=== PATIENT | male | born 1970 | race Caucasian/White ===

== ENCOUNTER 2016-11-27 13:55 | Inpatient (IN) | payer BC, OTHER ==
[~2016-11-27] VITALS: Ht 180.3 cm; Wt 106.6 kg
[~2016-11-27 13:55] MED LIST: ADULT LOW DOSE81 MG PO; CELEXA 20 MG TA20 M1 PO; CLARITIN10 MG PO; HYDROCODON-ACE1 EAC7 PO; MULTIPLE VITAM1 EAC3 PO; MULTIVITAMINS PO; NORCO 5-325 TA1 EACH PO; OMEPRAZOLE PO; PROTONIX40 M2 PO; SIMVASTATIN20 MG PO; TAMSULOSIN HCL0.4 MG PO; WELLBUTRIN SR150 MG PO; ZOFRAN ODT4 MG PO
[2016-11-27 14:21] VITALS: BP 146/100
[2016-11-27] MEDS ORDERED: PROZAC 10 MG CA10 MG PO (14:28)
[2016-11-27] MEDS ORDERED: PREVALITE PACKE1 PKT PO (14:29)
[2016-11-27 14:40] LABS: URINE BILIRUBIN 1+ (Negative); URINE BLOOD 3+ (Negative); URINE COLOR RED; URINE GLUCOSE-RANDOM* NEGATIVE (Negative); URINE KETONES NEGATIVE (Negative); URINE LEUKOCYTES-REFLEX NEGATIVE (Negative); URINE PROTEIN (DIPSTICK) 2+ (Negative); URINE SPECIFIC GRAVITY >= 1.030 (1.003-1.035); URINE UROBILINOGEN 0.2 E.U./dl (0.2-1.0)
[2016-11-27 14:46] LABS: HEMATOCRIT 43.9 % (42.0-52.0); HEMOGLOBIN 15.5 gm/dL (14.0-18.0); MCH 31.4 pg (26.0-34.0); MCHC 35.4 g/dL (28.0-37.0); MCV 88.7 fL (80.0-100.0); RBC 4.95 mil/uL (4.50-6.00); RDW 12.5 % (10.5-14.5); WBC 11.6 thou/uL (4.0-11.0)
[2016-11-27 14:49] LABS: CASTS None Seen /LPF (None Seen); ICTOTEST (BILI CONFIRMATORY) Negative (Negative)
[2016-11-27 14:50] LABS: CRYSTALS None Seen /LPF (None Seen); SQUAMOUS None Seen /LPF (0-3); URINE RBC >20 Many /HPF (0-2); URINE WBC-REFLEX 0-5 Rare /HPF (0-5)
[2016-11-27 14:56] LABS: CALCIUM 9.2 mg/dL (8.5-10.1); CREATININE 1.1 mg/dL (0.7-1.3); POTASSIUM 4.3 mmol/L (3.5-5.1)
[2016-11-27 16:18] VITALS: BP 146/100; BP 148/94
[2016-11-27 17:27] VITALS: BP 127/88
[2016-11-27 18:16] VITALS: BP 151/99
[2016-11-27 20:54] VITALS: BP 131/84
[2016-11-28 00:20] VITALS: BP 117/80
[2016-11-28 03:39] VITALS: BP 142/101
[2016-11-28 05:28] LABS: CALCIUM 8.5 mg/dL (8.5-10.1); CREATININE 1.1 mg/dL (0.7-1.3); POTASSIUM 3.9 mmol/L (3.5-5.1)
[2016-11-28 07:24] VITALS: BP 145/101
[2016-11-28 10:07] VITALS: BP 140/98
[2016-11-28] MEDS ORDERED: HYDROCODON-ACE1 EAC7 PO (10:46)
[2016-11-28 13:23] VITALS: BP 140/98
[2016-11-28] MEDS ORDERED: FLOMAX0.4 MG PO ×2 (13:41→13:55)
== END 2016-11-28 14:45 | disposition home or self-care (01) | DRG 690 ==
LOC: ER 13:55 → EROBS 16:15 → 4E 16:15
PROVIDERS: Emergency Medicine; Family Medicine
DX: N39.0 Urinary tract infection, site not specified (principal); N20.1 Calculus of ureter; K21.9 Gastro-esophageal reflux disease without esophagitis; F41.0 Panic disorder [episodic paroxysmal anxiety]; R31.9 Hematuria, unspecified; N28.89 Other specified disorders of kidney and ureter; Z85.528 Personal history of other malignant neoplasm of kidney; Z90.5 Acquired absence of kidney; Z90.49 Acquired absence of other specified parts of digestive tract; Z79.899 Other long term (current) drug therapy; Z79.82 Long term (current) use of aspirin; Z88.8 Allergy status to other drugs, medicaments and biological substances; Z91.048 Other nonmedicinal substance allergy status; Z87.442 Personal history of urinary calculi
CPT/HCPCS: 10084

== ENCOUNTER → 2019-01-21 | Outpatient (CLI) | payer OTHER ==
[~2019-01-21] MED LIST changes: +FLOMAX0.4 MG PO; +PREVALITE PACKE1 PKT PO; +PROZAC 10 MG CA10 MG PO
== END ==
LOC: CAT 07:40
DX: Z13.6 Encounter for screening for cardiovascular disorders (principal); E78.00 Pure hypercholesterolemia, unspecified; I25.10 Atherosclerotic heart disease of native coronary artery without angina pectoris